=== PATIENT | female | born 1990 | race Caucasian/White ===

== ENCOUNTER 2016-06-20 07:02 | Emergency (ER) | payer OTHER ==
[~2016-06-20] VITALS: Ht 154.9 cm; Wt 99.0 kg
[~2016-06-20 07:02] MED LIST: ACET325T96 PO; ALBU0.5N2 NEB; ALBU1AER9 INH; AMOX500T3 PO; DEXT1TAB50 PO; DIPH25CA65 PO; KRV28 PO
[2016-06-20 07:11] VITALS: TEMP 36.7; Ht 154.9 cm; Wt 99.0 kg
[2016-06-20] MEDS ORDERED: ALBUT/IPRATROP 3MG/0.5MG NEB 3 ML VIAL INH STA (07:30)
[2016-06-20] MEDS ORDERED: SODIUM CHLORIDE 0.9% 1000ML 1,000 ML IV STA (07:30)
[2016-06-20] MEDS ORDERED: VNTHFA/IN INH (07:39)
[2016-06-20 07:43] VITALS: O2SAT 98
[2016-06-20 07:43] LABS: BASO % 0.2 %; BASO ABS # 0.02 K/uL (0-0.2); COMPLETE YES; EOS % 2.4 %; HEMATOCRIT 42.1 % (37-47); IG% 0.3 %; LYMPH % 36.4 %; LYMPH ABS # 3.82 K/uL (1.2-3.4); MEAN CELL VOLUME 85.1 fL (80-100); MEAN CORPUSCULAR HEMOGLOBIN 28.7 pg (25-34); MEAN CORPUSCULAR HGB CONC 33.7 g/dl (32-36); MEAN PLATELET VOLUME 10.1 fL (7.4-10.4); MONO % 8.1 %; NEUT % 52.6 %; PLATELET COUNT 271 K/uL (130-400); RED BLOOD COUNT 4.95 M/uL (4.2-5.4); WHITE BLOOD COUNT 10.49 K/uL (4.8-10.8)
[2016-06-20 07:53] LABS: PROTHROMBIN TIME (PATIENT) 10.4 SECONDS (9.0-12.0)
[2016-06-20 08:13] LABS: BUN/CREATININE RATIO 16.9 (10-20); CALCIUM 8.7 mg/dl (8.5-10.1); CREATININE 0.87 mg/dl (0.60-1.20); MAGNESIUM 2.1 mg/dl (1.8-2.4); POTASSIUM 3.5 mmol/L (3.5-5.1)
[2016-06-20 08:24] LABS: ALB/GLOB RATIO 1.1 (0.9-2); CKMB/CK RATIO 1.4 (0-3.0); THYROID STIMULATING HORMONE 4.15 uIu/ml (0.300-4.500)
--- NOTE | 2016-06-20 08:35 | DIAGNOSTIC IMAGING REPORT ---
CHEST 2 VIEWS ROUTINE CLINICAL HISTORY: cough/fever/syncope dyspnea COMPARISON STUDY: 10/31/2015 FINDINGS: The bones soft tissues and hemidiaphragms are normal. The cardiomediastinal silhouette is normal. The lungs are clear. The pulmonary vasculature is normal. IMPRESSION: Negative chest. Electronically signed by: Taqueria Day M.D. 06/20/2016 8:33 AM Dictated Date/Time: 06/20/2016 8:33 AM
[2016-06-20] MEDS ORDERED: OPTIRAY 320 IV PRN (08:45)
--- NOTE | 2016-06-20 08:49 | EMERGENCY ROOM VISIT NOTE ---
History First contact with patient: 07:24 Chief Complaint: SYNCOPE (NEAR SYNCOPE) Stated Complaint: ALMOST PASSED OUT,FATIGUE,FIGHTING PNEMONIA X1MO Nursing Triage Summary: pt states she has been dealing with pneumonia for over a month. This morning, was in locker room changing, works in [employer], became lightheaded and helped herself to the floor, frederick that everything went black for a moment. Has a slight headache and feels dizzy. Pt currently menstruating; states gets headaches with menstration. Did not eat breakfast, but this is normal for her. History of Present Illness The patient is a 25 year old female who presents to the Emergency Department by private vehicle for evaluation of his equal episode. The patient reports that she has been treated with 2 separate courses of antibiotics (Levaquin) and prednisone over the past month. She was initially treated at the [facility] and again at [facility]. She reports that while getting ready for work today in the locker room she became lightheaded and had tunneling vision as well as palpitations. She slid herself down the wall and passed out. She had no chest pain prior to this. The patient reports no worsening shortness of breath, however she is had persistent shortness of breath since being diagnosed with a pneumonia. She does have a history of asthma. She reports no history of blood clots or bleeding disorders. She does not utilize control. There is been no recent long-distance travel. She is a former smoker. The patient rates her current discomfort as 1/10. She currently denies any headaches, blurry vision, double vision, slurred speech, facial droop, your letter weakness/numbness, chest pain, palpitations, nausea, vomiting, hematochezia, melena, hematuria, or dysuria. Review of Systems A complete 10-point Review of Systems was discussed with the patient, with pertinent positives and negatives listed in the History of Present Illness. All remaining Review of Systems questions can be considered negative unless otherwise specified. Past Medical/Surgical History Medical Problems: (1) Asthma Surgical Problems: (1) H/O tubal ligation (2) S/P tonsillectomy and adenoidectomy Family History Cancer Diabetes mellitus FH: lung disease Heart disease Hypertension Social History Smoking Status: Former Smoker Alcohol Use: none Drug Use: none Marital Status: single Housing Status: lives with family Occupation Status: employed Current/Historical Medications Scheduled Albuterol Hfa (Ventolin Hfa), 2-4 PUFFS INH Q6H Allergies Coded Allergies: Azithromycin (Verified Allergy, Severe, ANAPHYLAXIS, 10/31/15) Benzoyl Peroxide (Verified Allergy, Severe, face swells, redness, 10/31/15) Dimenhydrinate (Verified Allergy, Mild, "PASSES OUT", 10/31/15) Minocycline (Verified Allergy, Mild, FACIAL SWELLING, 10/31/15) Uncoded Allergies: CYCLINE ANTIBIOTICS (Allergy, Intermediate, EXACERBATES ASTHMA SYMPTOMS, GI UPSET, 08/08/14) Physical Exam Vital Signs Date Time Temp Pulse Resp B/P Pulse Ox O2 Delivery O2 Flow Rate FiO2 06/20/16 10:25 74 16 134/81 97 06/20/16 10:12 74 16 134/81 97 Room Air 06/20/16 09:35 72 14 116/72 96 Room Air 06/20/16 07:43 98 Room Air 06/20/16 07:34 71 06/20/16 07:11 36.7 73 17 143/86 98 Room Air Pain Rating (0-10): 1 Physical Exam VITAL SIGNS - Vital signs and nursing notes were reviewed. GENERAL - 25-year-old female appearing her stated age who is in no acute distress. Communicates well with provider and answers questions appropriately. HEAD - NC/AT. EYES - PERRL with EOMI bilaterally. Sclera anicteric. Palpebral conjunctiva pink and moist with no injection noted. EARS - No deformities of external structures noted on gross examination bilaterally. No pain elicited with palpation of the tragus bilaterally. External auditory canals without discharge or otorrhea. Tympanic membranes pearly evans without retraction or bulging. NOSE - Midline and without cyanosis. No epistaxis or purulent drainage noted. Septum midline without deviation or septal hematoma noted. MOUTH/OROPHARYNX - Without perioral cyanosis. Buccal mucosa pink and moist and without leukoplakia. Tongue midline with equal elevation of palate bilaterally. No tonsillar hypertrophy, erythema, or exudates noted. Good dentition noted. NECK - Neck with FROM. Supple to palpation. LUNGS - Chest wall symmetric without accessory muscle use, intercostals retractions, or central cyanosis. Normal vesicular breath sounds CTA B/L. No wheezes, rales, or rhonchi appreciated. CARDIAC - RRR with S1/S2. No murmur, rubs, or gallops appreciated. No reproducible tenderness to palpation appreciated over the anterior chest wall. ABDOMEN - Abdominal contour obese and without pulsations or visible masses. BS normoactive all four quadrants. No tenderness, palpable masses, hepatosplenomegaly, or ascites noted. EXTREMITIES - No clubbing or peripheral cyanosis. No pretibial edema present. +3 /5 radial and dorsalis pedis pulses palpated throughout. +5/5 strength noted in UE/LE bilaterally. NEUROLOGIC - Cranial nerves II through XII grossly intact. Sensory intact to light touch throughout. PSYCH - A&Ox3 and cooperates fully with examiner. Pt is very pleasant and interacts well with examiner. Medical Decision & Procedures ER Provider Diagnostic Interpretation: Radiological imaging and reports were reviewed by myself. Radiologist's Interpretation as follows: CHEST 2 VIEWS ROUTINE CLINICAL HISTORY: cough/fever/syncope dyspnea COMPARISON STUDY: 10/31/2015 FINDINGS: The bones soft tissues and hemidiaphragms are normal. The cardiomediastinal silhouette is normal. The lungs are clear. The pulmonary vasculature is normal. IMPRESSION: Negative chest. CT ANGIOGRAM OF THE CHEST CLINICAL HISTORY: Syncope. COMPARISON STUDY: Chest X-ray dated 06/20/2016 TECHNIQUE: Following the IV administration of 92 cc of Optiray 320, CT angiogram of the chest was performed from the upper abdomen to the thoracic inlet utilizing the pulmonary embolus protocol. Images are reviewed in the axial, sagittal, and coronal planes. 3-D MIPS images are created and assessed. IV contrast was administered without complication. CT DOSE: 461.51 mGy.cm FINDINGS: Thyroid: Imaged portions of the thyroid gland are normal in size and attenuation. Thoracic aorta: The thoracic aorta is normal in caliber and demonstrates standard 3-vessel arch anatomy. No dissection is seen. Pulmonary vasculature: The pulmonary trunk is normal in caliber. There are no filling defects identified in main, lobar, or segmental pulmonary branches to suggest pulmonary embolus. Heart: The heart is normal in size and configuration, and without pericardial effusion. Lungs and pleural spaces: The lungs and pleural spaces are clear. Mediastinum: There is no mediastinal lymphadenopathy. Barbara: Clear. Axillae: There is no axillary lymphadenopathy. Upper abdomen: Partially visualized upper abdominal viscera is within normal limits. Skeletal structures: No lytic or blastic bony lesions are seen. IMPRESSION: 1. There is no evidence of pulmonary embolus in the main, lobar, or segmental pulmonary arteries. 2. The lungs are clear. Laboratory Results 06/20/16 07:35 Red Blood Count 4.95, Mean Corpuscular Volume 85.1, Mean Corpuscular Hemoglobin 28.7, Mean Corpuscular Hemoglobin Concent 33.7, Mean Platelet Volume 10.1, Neutrophils (%) (Auto) 52.6, Lymphocytes (%) (Auto) 36.4, Monocytes (%) (Auto) 8.1, Eosinophils (%) (Auto) 2.4, Basophils (%) (Auto) 0.2, Neutrophils # (Auto) 5.52, Lymphocytes # (Auto) 3.82, Monocytes # (Auto) 0.85, Eosinophils # (Auto) 0.25, Basophils # (Auto) 0.02 06/20/16 07:35 Test 06/20/16 07:35 06/20/16 07:41 06/20/16 09:10 White Blood Count 10.49 K/uL (4.8-10.8) Red Blood Count 4.95 M/uL (4.2-5.4) Hemoglobin 14.2 g/dL (12.0-16.0) Hematocrit 42.1 % (37-47) Mean Corpuscular Volume 85.1 fL (80-100) Mean Corpuscular Hemoglobin 28.7 pg (25-34) Mean Corpuscular Hemoglobin Concent 33.7 g/dl (32-36) Platelet Count 271 K/uL (130-400) Mean Platelet Volume 10.1 fL (7.4-10.4) Neutrophils (%) (Auto) 52.6 % Lymphocytes (%) (Auto) 36.4 % Monocytes (%) (Auto) 8.1 % Eosinophils (%) (Auto) 2.4 % Basophils (%) (Auto) 0.2 % Neutrophils # (Auto) 5.52 K/uL (1.4-6.5) Lymphocytes # (Auto) 3.82 K/uL (1.2-3.4) Monocytes # (Auto) 0.85 K/uL (0.11-0.59) Eosinophils # (Auto) 0.25 K/uL (0-0.5) Basophils # (Auto) 0.02 K/uL (0-0.2) RDW Standard Deviation 43.0 fL (36.4-46.3) RDW Coefficient of Variation 13.9 % (11.5-14.5) Immature Granulocyte % (Auto) 0.3 % Immature Granulocyte # (Auto) 0.03 K/uL (0.00-0.02) Prothrombin Time 10.4 SECONDS (9.0-12.0) Prothromb Time International Ratio 1.0 (0.9-1.1) Activated Partial Thromboplast Time 25.6 SECONDS (21.0-31.0) Partial Thromboplastin Ratio 1.0 Anion Gap 9.0 mmol/L (3-11) Est Creatinine Clear Calc Drug Dose 104.7 ml/min Estimated GFR () 105.8 Estimated GFR (Non- 91.3 BUN/Creatinine Ratio 16.9 (10-20) Calcium Level 8.7 mg/dl (8.5-10.1) Magnesium Level 2.1 mg/dl (1.8-2.4) Total Bilirubin 0.3 mg/dl (0.2-1) Aspartate Amino Transf (AST/SGOT) 11 U/L (15-37) Alanine Aminotransferase (ALT/SGPT) 22 U/L (12-78) Alkaline Phosphatase 49 U/L (45-117) Total Creatine Kinase 64 U/L (26-192) Creatine Kinase MB 0.9 ng/ml (0.5-3.6) Creatine Kinase MB Ratio 1.4 (0-3.0) Total Protein 6.8 gm/dl (6.4-8.2) Albumin 3.6 gm/dl (3.4-5.0) Globulin 3.2 gm/dl (2.5-4.0) Albumin/Globulin Ratio 1.1 (0.9-2) Lipase 97 U/L (73-393) Thyroid Stimulating Hormone (TSH) 4.150 uIu/ml (0.300-4.500) Bedside D-Dimer > 450 ng/mlFEU (0-450) Bedside Troponin I 0.000 ng/ml (0-0.045) Urine Color YELLOW Urine Appearance CLEAR (CLEAR) Urine pH 6.5 (4.5-7.5) Urine Specific [place] 1.010 (1.000-1.030) Urine Protein NEG (NEG) Urine Glucose (UA) NEG (NEG) Urine Ketones NEG (NEG) Urine Occult Blood 3+ (NEG) Urine Nitrite NEG (NEG) Urine Bilirubin NEG (NEG) Urine Urobilinogen NEG (NEG) Urine Leukocyte Esterase NEG (NEG) Urine WBC (Auto) 1-5 /hpf (0-5) Urine RBC (Auto) >30 /hpf (0-4) Urine Hyaline Casts (Auto) 0 /lpf (0-5) Urine Epithelial Cells (Auto) 20-30 /lpf (0-5) Urine Bacteria (Auto) NEG (NEG) Urine Test NEG (NEG) Medications Administered Medications (Trade) Dose Ordered Sig/Jeovany Route Start Time Stop Time Status Last Admin Dose Admin Sodium Chloride (Nss 1000ml) 1,000 ml @ 999 mls/hr Q1H1M STAT IV 06/20/16 07:30 06/20/16 08:30 DC 06/20/16 07:43 999 MLS/HR Albuterol/ Ipratropium (Duoneb) 3 ml NOW STAT INH 06/20/16 07:30 06/20/16 07:33 DC 06/20/16 07:43 3 ML Procedure Patient was placed on the alarm security or surveillance monitor and monitored throughout the entire extent of their stay. In addition, the patient's pulse oximetry was monitored throughout the entire stay. Any abnormalities or aberrancies were addressed appropriately. ECG Indication: syncope Rate (beats per minute): 67 Rhythm: normal sinus Findings: no acute ischemic change, no ectopy Comparison ECG Date: no prior available ED Course Patient was seen and evaluated by myself. Labs were drawn, saline lock in place. EKG and chest x-rays were obtained. Patient was hydrated with a 1000 mL normal saline bolus. She received 1 DuoNeb. Laboratory results demonstrate no acute leukocytosis, worrisome anemia, or bandemia. The patient has no significant electrolyte abnormalities. Cardiac enzymes are negative. Troponin is not elevated. D-dimer was found to be elevated. Because of this, CTA of the chest was obtained. Imaging results above. Laboratory results and imaging studies were reviewed with the patient who acknowledges understanding. The patient was encouraged to continue to use her albuterol inhaler for home. She was offered cough medication which she declines. She was educated on worrisome symptoms for return visit to the emergency department. Patient discharged home afebrile and in good condition. Medical Decision Given the patient's presentation and stated complaints, I did elect to perform the above-mentioned workup. The patient presents today after syncopal episode that occurred this morning. The patient has been ill for the last month. She is had no fevers. She had symptoms consistent with acute vasovagal attack while preparing for work. She did not strike her head. There was no lengthy time of loss of consciousness. The patient was not found to have a pneumonia on chest x-ray alone. Her d-dimer was elevated. In the setting of syncope an ongoing upper respiratory symptoms, a CTA was performed to rule out the possibility of PE as underlying diagnosis. EKG and cardiac enzymes are negative. CTA was unremarkable. The patient will continue to utilize over-the- counter medications for this point. She was educated on worrisome symptoms for return visit to the emergency department. Patient discharged home afebrile and in good condition. In the evaluation and treatment of this patient, the following differential diagnoses were considered: SD, ASC, Dysrhythmia, Angina, Mediastinitis, GERD, Esophagitis, PE, Pneumonia, Bronchitis, Costochondritis, Rib Fracture, Zoster. Impression Primary Impression: Vasovagal syncope Additional Impression: Cough Departure Information Dispostion Home / Self-Care Condition GOOD Referrals Yoni Lopez M.D. (PCP) Patient Instructions ED Syncope Vasovagal, [facility] Additional Instructions You have been seen in the emergency department today for an episode of vasovagal syncope. Please drink plenty of fluids and stay well-hydrated. Continue to use your albuterol inhaler 2 puffs every 4-6 hours for the next 3-4 days and then as needed for cough. For pain control, you can use the following ludo-yax-[id number] medicines (if >12 yo): - Regular strength (325mg/tab) Tylenol (acetaminophen) 2 tabs every 4-6 hours as needed. Do not exceed 12 tablets in a 24 hour period. Avoid taking more than 4 grams (4000 mg) of Tylenol per day. This includes any other sources of acetaminophen you may take on a regular basis. - Regular strength (200 mg/tab) Advil (ibuprofen) 1-2 tabs every 4-6 hours as needed. Do not exceed a dose of 3200 mg per day. Follow-up with your primary care provider from today's visit. Return for any changing or worsening symptoms. Problem Qualifiers
--- NOTE | 2016-06-20 09:26 | DIAGNOSTIC IMAGING REPORT ---
CT ANGIOGRAM OF THE CHEST CLINICAL HISTORY: Syncope. COMPARISON STUDY: Chest X-ray dated 06/20/2016 TECHNIQUE: Following the IV administration of 92 cc of Optiray 320, CT angiogram of the chest was performed from the upper abdomen to the thoracic inlet utilizing the pulmonary embolus protocol. Images are reviewed in the axial, sagittal, and coronal planes. 3-D MIPS images are created and assessed. IV contrast was administered without complication. CT DOSE: 461.51 mGy.cm FINDINGS: Thyroid: Imaged portions of the thyroid gland are normal in size and attenuation. Thoracic aorta: The thoracic aorta is normal in caliber and demonstrates standard 3-vessel arch anatomy. No dissection is seen. Pulmonary vasculature: The pulmonary trunk is normal in caliber. There are no filling defects identified in main, lobar, or segmental pulmonary branches to suggest pulmonary embolus. Heart: The heart is normal in size and configuration, and without pericardial effusion. Lungs and pleural spaces: The lungs and pleural spaces are clear. Mediastinum: There is no mediastinal lymphadenopathy. Barbara: Clear. Axillae: There is no axillary lymphadenopathy. Upper abdomen: Partially visualized upper abdominal viscera is within normal limits. Skeletal structures: No lytic or blastic bony lesions are seen. IMPRESSION: 1. There is no evidence of pulmonary embolus in the main, lobar, or segmental pulmonary arteries. 2. The lungs are clear. Electronically signed by: Manuel Guillen M.D. 06/20/2016 9:25 AM Dictated Date/Time: 06/20/2016 9:15 AM
[2016-06-20 09:28] LABS: URINE APPEARANCE CLEAR (CLEAR); URINE BILIRUBIN NEG (NEG); URINE EPITHELIAL CELL AUTO 20-30 /lpf (0-5); URINE NITRITE NEG (NEG); URINE PH 6.5 (4.5-7.5); UROBILINOGEN NEG (NEG); ZZUR CULT IF INDIC CLEAN CATCH NO
[2016-06-20 09:38] LABS: MANUAL MICROSCOPIC REQUIRED? NO; REVIEW REQ? NO; URINE COLOR YELLOW
[2016-06-20 10:25] VITALS: BP 134/81; PULSE 74; O2SAT 97
[2016-12-03] MEDS ORDERED: PANT40TA PO (07:52)
== END 2016-06-20 10:26 | disposition home or self-care (01) ==
LOC: C.EDB 07:04 → C.EDA 10:26
DX: R55 Syncope and collapse (principal); R05 Cough; J45.909 Unspecified asthma, uncomplicated; Z87.891 Personal history of nicotine dependence; Z98.51 Tubal ligation status; Z98.890 Other specified postprocedural states; Z88.1 Allergy status to other antibiotic agents; Z88.8 Allergy status to other drugs, medicaments and biological substances; Z80.9 Family history of malignant neoplasm, unspecified; Z83.3 Family history of diabetes mellitus; Z82.49 Family history of ischemic heart disease and other diseases of the circulatory system

== ENCOUNTER 2016-11-09 05:35 | Emergency (ER) | payer OTHER ==
[~2016-11-09] VITALS: Ht 154.9 cm; Wt 96.3 kg
[~2016-11-09 05:35] MED LIST changes: -ACET325T96 PO; -ALBU0.5N2 NEB; -ALBU1AER9 INH; -AMOX500T3 PO; -DEXT1TAB50 PO; -DIPH25CA65 PO; -KRV28 PO; +VNTHFA/IN INH
[2016-11-09 05:38] VITALS: TEMP 36.9; Ht 154.9 cm; Wt 96.3 kg
[2016-11-09] MEDS ORDERED: SODIUM CHLORIDE 0.9% 1000ML 1,000 ML IV STA (06:05)
--- NOTE | 2016-11-09 06:15 | EMERGENCY ROOM VISIT NOTE ---
History Report prepared by Karuna: Priya Patterson Under the Supervision of: Dr. Tammi Cronin M.D. First contact with patient: 05:41 Chief Complaint: ABDOMINAL PAIN Stated Complaint: RIGHT SIDE ABD PAIN History of Present Illness The patient is a 26 year old female who presents to the Emergency Room with complaints of intermittent, worsening right sided abdominal pain starting about a month ago. She describe is as a dull ache. The pain sometimes radiates to the back. She has some nausea but denies vomiting. She also reports some diarrhea which does not seem to occur with the pain. She had an ultrasound at her PCP's office 3 days ago which was negative for gallbladder disease. She has been taking Magnesium Oxide as prescribed without relief. She also tried Gas-X and acid reflux medication without relief. She has changed her diet and removed fatty foods without relief. Her pain worsens about 45 minutes after eating. She denies any changes in diet prior to the onset of her pain. She has lost about 7- 10 pounds in the past month. She reports a loss of appetite since the onset of her pain. The patient denies fevers, chills, cough, chest pain, shortness of breath, constipation, or any other complaints. She has a history of tubal ligation. Source of History: patient Onset: about a month ago Position: abdomen (right sided) Symptom Intensity: dull Quality: ache Timing: intermittent, worsening Modifying Factors (Relieving): other (Magnesium Oxide, Gas-X, and acid reflux medication without relief) Associated Symptoms: + nausea, + diarrhea, No fevers, No chills, No cough, No chest pain, No SOB, No vomiting Review of Systems See HPI for pertinent positives & negatives. A total of 10 systems reviewed and were otherwise negative. Past Medical & Surgical Medical Problems: (1) Asthma Surgical Problems: (1) H/O tubal ligation (2) S/P tonsillectomy and adenoidectomy Family History Cancer Diabetes mellitus FH: lung disease Heart disease Hypertension Social History Smoking Status: Current Every Day Smoker Alcohol Use: none Drug Use: none Marital Status: single Housing Status: lives with family Occupation Status: employed Current/Historical Medications Scheduled Magnesium Oxide (Mag-Ox), 400 MG PO BID Multivitamin (Multivitamin), 1 TAB PO DAILY Pantoprazole (Protonix), 40 MG PO DAILY Scheduled PRN Albuterol Hfa (Ventolin Hfa), 2 PUFFS INH Q6H PRN for SOB/Wheezing Allergies Coded Allergies: Azithromycin (Verified Allergy, Severe, ANAPHYLAXIS, 11/09/16) Benzoyl Peroxide (Verified Allergy, Severe, face swells, redness, 11/09/16) Dimenhydrinate (Verified Allergy, Mild, "PASSES OUT", 11/09/16) Minocycline (Verified Allergy, Mild, FACIAL SWELLING, 11/09/16) Uncoded Allergies: CYCLINE ANTIBIOTICS (Allergy, Intermediate, EXACERBATES ASTHMA SYMPTOMS, GI UPSET, 08/08/14) Physical Exam Vital Signs Date Time Temp Pulse Resp B/P (MAP) Pulse Ox O2 Delivery O2 Flow Rate FiO2 11/09/16 07:35 79 16 127/83 99 11/09/16 05:38 36.9 94 18 144/93 96 Room Air Physical Exam Vital signs reviewed. General: Well-appearing, in no significant distress. HEENT: No scleral icterus, PERRLA, neck supple. Atraumatic. Cardiovascular: Regular rate and rhythm, no extra sounds. Pulmonary: Clear to auscultation bilaterally, normal work of breathing. Abdomen: Soft, minimal right upper quadrant tenderness, no rebound or guarding, nondistended, positive bowel sounds. Musculoskeletal: Atraumatic, no peripheral edema. Neurologic: Patient awake alert and oriented x 3, full strength in all 4 extremities. Cranial nerves 2 through 12 grossly intact. Skin: Warm, dry, no rash Medical Decision & Procedures ER Provider Diagnostic Interpretation: US results as stated below per my review and radiologist interpretation: BILIARY ULTRASOUND CLINICAL HISTORY: Right upper quadrant abdominal pain COMPARISON STUDY: No previous studies for comparison. FINDINGS: The pancreas was poorly visualized due to overlying bowel gas shadowing. The liver appears sonographically normal. The gallbladder appears sonographically normal. There is no ductal dilatation. The common bile duct measured 5 mm in maximal diameter. There is no right-sided hydronephrosis. IMPRESSION: Suboptimal visualization of the pancreas. Otherwise normal biliary ultrasound. Electronically signed by: Alex Aguilar M.D. 11/09/2016 7:12 AM Dictated Date/Time: 11/09/2016 7:11 AM Laboratory Results 11/09/16 06:10 Red Blood Count 5.20, Mean Corpuscular Volume 85.2, Mean Corpuscular Hemoglobin 28.3, Mean Corpuscular Hemoglobin Concent 33.2, Mean Platelet Volume 10.7, Neutrophils (%) (Auto) 62.1, Lymphocytes (%) (Auto) 27.3, Monocytes (%) (Auto) 6.7, Eosinophils (%) (Auto) 3.2, Basophils (%) (Auto) 0.5, Neutrophils # (Auto) 5.49, Lymphocytes # (Auto) 2.41, Monocytes # (Auto) 0.59, Eosinophils # (Auto) 0.28, Basophils # (Auto) 0.04 11/09/16 06:10 Test 11/09/16 06:05 11/09/16 06:10 Urine Test NEG (NEG) White Blood Count 8.83 K/uL (4.8-10.8) Red Blood Count 5.20 M/uL (4.2-5.4) Hemoglobin 14.7 g/dL (12.0-16.0) Hematocrit 44.3 % (37-47) Mean Corpuscular Volume 85.2 fL (80-100) Mean Corpuscular Hemoglobin 28.3 pg (25-34) Mean Corpuscular Hemoglobin Concent 33.2 g/dl (32-36) Platelet Count 262 K/uL (130-400) Mean Platelet Volume 10.7 fL (7.4-10.4) Neutrophils (%) (Auto) 62.1 % Lymphocytes (%) (Auto) 27.3 % Monocytes (%) (Auto) 6.7 % Eosinophils (%) (Auto) 3.2 % Basophils (%) (Auto) 0.5 % Neutrophils # (Auto) 5.49 K/uL (1.4-6.5) Lymphocytes # (Auto) 2.41 K/uL (1.2-3.4) Monocytes # (Auto) 0.59 K/uL (0.11-0.59) Eosinophils # (Auto) 0.28 K/uL (0-0.5) Basophils # (Auto) 0.04 K/uL (0-0.2) RDW Standard Deviation 42.5 fL (36.4-46.3) RDW Coefficient of Variation 13.7 % (11.5-14.5) Immature Granulocyte % (Auto) 0.2 % Immature Granulocyte # (Auto) 0.02 K/uL (0.00-0.02) Urine Color YELLOW Urine Appearance CLEAR (CLEAR) Urine pH 5.0 (4.5-7.5) Urine Specific [place] 1.035 (1.000-1.030) Urine Protein NEG (NEG) Urine Glucose (UA) NEG (NEG) Urine Ketones NEG (NEG) Urine Occult Blood NEG (NEG) Urine Nitrite NEG (NEG) Urine Bilirubin NEG (NEG) Urine Urobilinogen NEG (NEG) Urine Leukocyte Esterase TRACE (NEG) Urine WBC (Auto) 5-10 /hpf (0-5) Urine RBC (Auto) 5-10 /hpf (0-4) Urine Hyaline Casts (Auto) 1-5 /lpf (0-5) Urine Epithelial Cells (Auto) >30 /lpf (0-5) Urine Bacteria (Auto) 2+ (NEG) Anion Gap 10.0 mmol/L (3-11) Est Creatinine Clear Calc Drug Dose 113.9 ml/min Estimated GFR () 119.9 Estimated GFR (Non- 103.5 BUN/Creatinine Ratio 28.1 (10-20) Calcium Level 9.4 mg/dl (8.5-10.1) Total Bilirubin 0.3 mg/dl (0.2-1) Direct Bilirubin < 0.1 mg/dl (0-0.2) Aspartate Amino Transf (AST/SGOT) 15 U/L (15-37) Alanine Aminotransferase (ALT/SGPT) 25 U/L (12-78) Alkaline Phosphatase 42 U/L (45-117) Total Protein 7.4 gm/dl (6.4-8.2) Albumin 4.0 gm/dl (3.4-5.0) Lipase 166 U/L (73-393) Laboratory results per my review. Medications Administered Medications (Trade) Dose Ordered Sig/Ejovany Route Start Time Stop Time Status Last Admin Dose Admin Sodium Chloride 1,000 ml @ 200 mls/hr Q5H STAT IV 11/09/16 06:05 11/09/16 08:22 DC 11/09/16 06:15 200 MLS/HR Pantoprazole Sodium (Protonix Tab) 40 mg NOW STAT PO 11/09/16 07:15 11/09/16 07:16 DC 11/09/16 07:35 40 MG ED Course 0541: Past medical records reviewed. The patient was evaluated in room A11B. A complete history and physical examination was performed. 0605: Sodium Chloride 1000 ml @ 200 mls/hr IV 0715: Protonix Tab 40 mg PO 0720: Upon reevaluation, the patient appeared to have improvement of her symptoms. I discussed findings with her. She verbalized agreement of the treatment plan. She was discharged home. Medical Decision Medication Reconciliation: I attest that I have personally reviewed the patient' s current medication list. Blood Pressure Screening: Patient was found to have an elevated blood pressure and was referred to their primary doctor for recheck and further treatment. Differential diagnosis: Etiologies such as appendicitis, diverticulitis, PUD, biliary pathology, UTI, pancreatitis, obstruction, mesenteric ischemia, aortic pathology, infections, inflammatory bowel disease, renal colic, as well as others were entertained. This patient was evaluated and appeared to be in no significant distress. IV access was obtained and laboratory work was drawn. The patient was hydrated with normal saline solution. Patient declined the need for any pain medication. Ultrasound of right upper quadrant was performed and is largely negative. Laboratory work is fairly unrevealing. Urinalysis is largely contaminated. I suspect the patient is suffering from gastritis or peptic ulcer disease. She was given Protonix 40 mg orally. She was given a prescription for a 30 day supply. She will follow-up with her physician for reevaluation this week and return to the ER for worsening of symptoms or any medical concerns. Impression Primary Impression: Epigastric abdominal pain Additional Impression: Gastritis Scribe Attestation The scribe's documentation has been prepared under my direction and personally reviewed by me in its entirety. I confirm that the note above accurately reflects all work, treatment, procedures, and medical decision making performed by me. Departure Information Dispostion Home / Self-Care Prescriptions Pantoprazole (Protonix) 40 Mg Tab 40 MG PO DAILY, #30 TAB Prov: Tammi Cronin M.D. 11/09/16 Referrals Yoni Lopez M.D. (PCP) Alejandro Calvo D.O. Forms HOME CARE DOCUMENTATION FORM, IMPORTANT VISIT INFORMATION Patient Instructions My [facility] Additional Instructions Diagnosis: Epigastric abdominal pain, gastritis Protonix 40 mg daily for 30 days. Drink plenty of clear fluids. Avoid alcohol, coffee, soda, aspirin, Aleve. Follow-up with your primary care physician this week for reevaluation and consideration of gastroenterology follow-up. Please see Dr. Calvo of the [facility]'s phone number below. Return to the emergency department for worsening of symptoms or any medical concerns. Problem Qualifiers
[2016-11-09 06:19] LABS: BASO % 0.5 %; BASO ABS # 0.04 K/uL (0-0.2); COMPLETE YES; EOS % 3.2 %; HEMATOCRIT 44.3 % (37-47); IG% 0.2 %; LYMPH % 27.3 %; LYMPH ABS # 2.41 K/uL (1.2-3.4); MEAN CELL VOLUME 85.2 fL (80-100); MEAN CORPUSCULAR HEMOGLOBIN 28.3 pg (25-34); MEAN CORPUSCULAR HGB CONC 33.2 g/dl (32-36); MEAN PLATELET VOLUME 10.7 fL (7.4-10.4); MONO % 6.7 %; NEUT % 62.1 %; PLATELET COUNT 262 K/uL (130-400); WHITE BLOOD COUNT 8.83 K/uL (4.8-10.8)
[2016-11-09 06:30] LABS: URINE APPEARANCE CLEAR (CLEAR); URINE BILIRUBIN NEG (NEG); URINE COLOR YELLOW; URINE EPITHELIAL CELL AUTO >30 /lpf (0-5); URINE NITRITE NEG (NEG); URINE SPECIFIC GRAVITY 1.035 (1.000-1.030); UROBILINOGEN NEG (NEG); ZZUR CULT IF INDIC CLEAN CATCH YES
[2016-11-09 06:38] LABS: ALT/SGPT 25 U/L (12-78); BLOOD UREA NITROGEN 22 mg/dl (7-18); BUN/CREATININE RATIO 28.1 (10-20); CALCIUM 9.4 mg/dl (8.5-10.1); CARBON DIOXIDE 23 mmol/L (21-32); CHLORIDE 108 mmol/L (98-107); CREATININE 0.78 mg/dl (0.60-1.20); GLUCOSE 88 mg/dl (70-99); POTASSIUM 3.4 mmol/L (3.5-5.1); SODIUM 141 mmol/L (136-145)
[2016-11-09 06:39] LABS: MANUAL MICROSCOPIC REQUIRED? NO; REVIEW REQ? NO
[2016-11-09 06:41] LABS: ALKALINE PHOSPHATASE 42 U/L (45-117); AST/SGOT 15 U/L (15-37)
[2016-11-09] MEDS ORDERED: MAGN400T6 PO (06:41)
[2016-11-09] MEDS ORDERED: MULT-506 PO (06:41)
--- NOTE | 2016-11-09 07:13 | DIAGNOSTIC IMAGING REPORT ---
BILIARY ULTRASOUND CLINICAL HISTORY: Right upper quadrant abdominal pain COMPARISON STUDY: No previous studies for comparison. FINDINGS: The pancreas was poorly visualized due to overlying bowel gas shadowing. The liver appears sonographically normal. The gallbladder appears sonographically normal. There is no ductal dilatation. The common bile duct measured 5 mm in maximal diameter. There is no right-sided hydronephrosis. IMPRESSION: Suboptimal visualization of the pancreas. Otherwise normal biliary ultrasound. Electronically signed by: Alex Aguilar M.D. 11/09/2016 7:12 AM Dictated Date/Time: 11/09/2016 7:11 AM
[2016-11-09] MEDS ORDERED: PANTOprazole SOD 40 MG TAB PO STA (07:15)
[2016-11-09] MEDS ORDERED: PANT40TA PO (07:17)
[2016-11-09 07:35] VITALS: BP 127/83; PULSE 79; O2SAT 99
[2016-12-03] MEDS ORDERED: PANT40TA PO (07:52)
== END 2016-11-09 07:37 | disposition home or self-care (01) ==
LOC: C.EDB 05:36 → C.EDA 07:37
DX: K29.70 Gastritis, unspecified, without bleeding (principal); Z98.51 Tubal ligation status; J45.909 Unspecified asthma, uncomplicated; Z80.9 Family history of malignant neoplasm, unspecified; Z82.49 Family history of ischemic heart disease and other diseases of the circulatory system; F17.210 Nicotine dependence, cigarettes, uncomplicated; Z79.899 Other long term (current) drug therapy

== ENCOUNTER → 2016-12-04 | Day surgery (SDC) | payer OTHER ==
[2016-12-03 07:53] VITALS: Ht 154.9 cm; Wt 81.8 kg
[~2016-12-04] VITALS: Ht 154.9 cm; Wt 81.8 kg
[~2016-12-04] MED LIST changes: +LIDOCAINE HCL 2% 2 ML VIAL (20MG/ML) ONE; +MULT-506 PO; +PANT40TA PO; +PROPOFOL IV EMULSION 10 MG/ML 20 ML VIAL IV ONE; +SODIUM CHLORIDE 0.9% 500ML 500 ML IV ONE
[2016-12-04 10:43] VITALS: TEMP 37.1
--- NOTE | 2016-12-04 12:07 | Endo History and Physical ---
History & Physical Date of Service: Dec 04, 2016. Chief Complaint: RUQ pain and nausea Referring Physician: Dr. Yoni Lopez History of Present Illness 26 yo CF who presents for EGD secondary to RUQ abdominal pain and nausea. Past Surgical History Hx Cardiac Surgery: Yes (PDA CLOSURE) Hx Internal Defibrillator: No Hx Pacemaker: No Hx Abdominal Surgery: Yes ( X 2, TUBAL LIGATION) Hx of Implantable Prosthesis: No Hx Post-Op Nausea and Vomiting: No Hx Cancer Surgery: No Hx Thoracic Surgery: No Hx Orthopedic: No Hx Urinary Tract Surgery: No Family History IBD Social History Smoking Status: Former Smoker Hx Substance Use: No Hx Alcohol Use: Yes (OCCASIONALLY) Allergies Coded Allergies: Azithromycin (Verified Allergy, Severe, ANAPHYLAXIS, 12/04/16) Benzoyl Peroxide (Verified Allergy, Severe, face swells, redness, 12/04/16) Dimenhydrinate (Verified Allergy, Mild, "PASSES OUT", 12/04/16) Minocycline (Verified Allergy, Mild, FACIAL SWELLING, 12/04/16) Uncoded Allergies: CYCLINE ANTIBIOTICS (Allergy, Intermediate, EXACERBATES ASTHMA SYMPTOMS, GI UPSET, 08/08/14) Current Medications Reported Home Medications Medications Dose Route/Sig Max Daily Dose Days Date Category Protonix (Pantoprazole Sodium) 40 Mg Tab 40 Mg PO QAM 12/03/16 Reported Multivitamin (Multivitamins) Tab 1 Tab PO DAILY 11/09/16 Reported Ventolin Hfa (Albuterol) 200 Puffs/07923 Mcg Aers 2 Puffs INH Q6H PRN 06/20/16 Reported Vital Signs Weight (Kilograms): 81.82 Height (Feet): 5 Height (Inches): 1 Date Time Temp Pulse Resp B/P (MAP) Pulse Ox O2 Delivery O2 Flow Rate FiO2 12/04/16 10:43 37.1 77 20 148/61 (90) 97 Room Air Physical Exam General Appearance: WD/WN, no apparent distress Respiratory/Chest: Auscultation: breath sounds normal Cardiovascular: Heart Auscultation: RRR Abdomen: Bowel Sounds: normal Inspection & Palpation: soft, non-distended, no tenderness, guarding & rebound Assessment and Plan Assessment: 26 yo CF who presents for EGD secondary to RUQ abdominal pain and nausea. Plan: Proceed with EGD.
--- NOTE | 2016-12-04 12:34 | Anesthesiology Progress Note ---
Anesthesia Post Op Note Date & Time Dec 04, 2016 at 12:34 Vital Signs Pain Intensity: 0 Vital Signs Past 12 Hours Date Time Temp Pulse Resp B/P (MAP) Pulse Ox O2 Delivery O2 Flow Rate FiO2 12/04/16 12:21 54 16 109/68 (82) 97 Room Air 12/04/16 10:43 37.1 77 20 148/61 (90) 97 Room Air Notes Mental Status: alert / awake / arousable, participated in evaluation Pt Amnestic to Procedure: Yes Nausea / Vomiting: adequately controlled Pain: adequately controlled Airway Patency, RR, SpO2: stable & adequate BP & HR: stable & adequate Hydration State: stable & adequate Anesthetic Complications: no major complications apparent
--- NOTE | 2016-12-04 12:37 | Discharge Instructions ---
Endoscopy Patient Instructions Date / Procedure(s) Performed Dec 04, 2016. EGD Allergy Information Coded Allergies: Azithromycin (Verified Allergy, Severe, ANAPHYLAXIS, 12/04/16) Benzoyl Peroxide (Verified Allergy, Severe, face swells, redness, 12/04/16) Dimenhydrinate (Verified Allergy, Mild, "PASSES OUT", 12/04/16) Minocycline (Verified Allergy, Mild, FACIAL SWELLING, 12/04/16) Uncoded Allergies: CYCLINE ANTIBIOTICS (Allergy, Intermediate, EXACERBATES ASTHMA SYMPTOMS, GI UPSET, 08/08/14) Discharge Date / Findings Dec 04, 2016. Gastric antrum biopsies Medication Instructions OK to resume all medications today as prescribed Reported Home Medications Medications Dose Route/Sig Max Daily Dose Days Date Category Protonix (Pantoprazole Sodium) 40 Mg Tab 40 Mg PO QAM 12/03/16 Reported Multivitamin (Multivitamins) Tab 1 Tab PO DAILY 11/09/16 Reported Ventolin Hfa (Albuterol) 200 Puffs/90665 Mcg Aers 2 Puffs INH Q6H PRN 06/20/16 Reported Provider Instructions Activity Restrictions - No exercising or heavy lifting for 24 hours. - Do not drink alcohol the day of the procedure. - Do not drive a car or operate machinery until the day after the procedure. - Do not make any important decisions or sign important papers in 24 hours after the procedure. Following Day: - Return to full activity which may include returning to work/school. Diet Start your diet with liquids and light foods (jello, soup, juice, toast). Then eat your usual diet if not nauseated. Treatment For Common After Affects For mild abdominal pain, bloating, or excessive gas: - Rest - Eat lightly - Lie on right side Follow-Up Information Follow-up with Dr. Yoni Lopez as scheduled Anesthesia Information What You Should Know You have had a procedure that required some medicine to reduce anxiety and discomfort. This treatment is called moderate sedation. After receiving the treatment, you may be sleepy, but you will be able to breathe on your own. The effects of the treatment may last for several hours. Follow these instructions along with Activity/Diet recommendations noted above: * Do NOT do anything where dizziness or clumsiness would be dangerous. * Rest quietly at home today, then you can be up and about tomorrow. * Have a responsible person stay with you the rest of today. * You may have had an I.V. today. If so, you may take the dressing off later today. Recommendations Call your doctor if: * Trouble breathing * Continuous vomiting for more than 24 hours * Temperature above 101 degrees * Severe abdominal pain or bloating * Pain not relieved by pain medicine ordered * There is increased drainage or redness from any incision * A large amount of rectal bleeding greater than 2-3 tablespoons. (If you had a polyp/s removed or have hemorrhoids, a small amount of blood - from the rectum is to be expected.) * You have any unanswered questions or concerns. IN THE EVENT OF A SERIOUS EMERGENCY, GO TO THE NEAREST EMERGENCY ROOM Your discharge instructions were prepared by provider Alejandro Calvo. Patient Instructions Signature Page Katerin Tres Patient (or Guardian) Signature/Date: I have read and understand the instructions given to me by my caregivers. Caregiver/RN/Doctor Signature/Date: The above-named patient and/or guardian has received patient instructions on this date. + Original Patient Signature Page (only) stays with chart. Please make copy for patient.
--- NOTE | 2016-12-04 12:40 | GI REPORT ---
Procedure Date: 12/04/2016 11:36 AM Procedure: Upper GI endoscopy Indications: Abdominal pain in the right upper quadrant, Nausea Medicines: Monitored Anesthesia Care Complications: No immediate complications. Estimated Blood Loss: Estimated blood loss: none. Procedure: Pre-Anesthesia Assessment: - Prior to the procedure, a History and Physical was performed, and patient medications and allergies were reviewed. The patient's tolerance of previous anesthesia was also reviewed. The risks and benefits of the procedure and the sedation options and risks were discussed with the patient. All questions were answered, and informed consent was obtained. Prior Anticoagulants: The patient has taken no previous anticoagulant or antiplatelet agents. ASA Grade Assessment: II - A patient with mild systemic disease. After reviewing the risks and benefits, the patient was deemed in satisfactory condition to undergo the procedure. After obtaining informed consent, the endoscope was passed under direct vision. Throughout the procedure, the patient's blood pressure, pulse, and oxygen saturations were monitored continuously. The scope was introduced through the mouth, and advanced to the second part of duodenum. The upper GI endoscopy was accomplished without difficulty. The patient tolerated the procedure well. Findings: The esophagus was normal. The entire examined stomach was normal. Biopsies were taken with a cold forceps for histology. The examined duodenum was normal. Impression: - Normal esophagus. - Normal stomach. Biopsied. - Normal examined duodenum. Recommendation: - Resume previous diet. - Continue present medications. - Await pathology results. - Return to GI office as previously scheduled. Alejandro Calvo DO 12/04/2016 12:39:35 PM This report has been signed electronically. Note Initiated On: 12/04/2016 11:36 AM I attest to the content of the Intraoperative Record and orders documented therein, exceptions below
[2016-12-04 12:51] VITALS: BP 109/72; PULSE 61; O2SAT 97
== END | disposition home or self-care (01) ==
LOC: C.GI 10:23
PROVIDERS: ATTEND Internal Medicine
DX: K29.50 Unspecified chronic gastritis without bleeding (principal); Z83.79 Family history of other diseases of the digestive system; Z87.891 Personal history of nicotine dependence; Z79.899 Other long term (current) drug therapy